=== PATIENT | male | born 1985 | race Caucasian/White ===

== ENCOUNTER 2018-12-22 03:45 | Inpatient (IN) | payer SELFPAY ==
[~2018-12-22] VITALS: Ht 182.9 cm; Wt 113.0 kg
[2018-12-22] MEDS ORDERED: LORazepam 2MG/ML-1ML VIAL IV ONE ×2 (04:30→07:45)
[2018-12-22] MEDS ORDERED: SODIUM CHLORIDE 0.9% 1,000 ML IV ONE ×2 (04:30→09:30)
[2018-12-22] MEDS ORDERED: ACETAMINOPHEN 325 MG TAB PO ONE (04:30)
[2018-12-22 06:27] LABS: Urine Bacteria NONE SEEN /hpf (None Seen); Urine Blood 2+ /uL (Negative); Urine Hyaline Cast MANY /lpf (0 - 2); Urine Mucus FEW (None Seen); Urine Specific Gravity 1.015 (1.001-1.035); Urine Sperm PRESENT /hpf (None Seen); Urine WBC 7 /hpf (0 - 3)
[2018-12-22 06:55] LABS: Amphetamine Screen, Urine POSITIVE (NEGATIVE); Barbiturate Scree,Urine NEGATIVE (NEGATIVE); Benzodiazephine Screen, Urine NEGATIVE (NEGATIVE); Cannabinoid Screen, Urine POSITIVE (NEGATIVE); Cocaine Screen, Urine NEGATIVE (NEGATIVE); Opiate Scree,Urine NEGATIVE (NEGATIVE); Phencyclidine Screen, Urine NEGATIVE (NEGATIVE)
[2018-12-22 07:18] LABS: Basophils # (auto) 0.2 uL; Basophils % (auto) 0.7 % (0.0-2.0); Eosinophils # (auto) 0 uL; Hematocrit 46.6 % (41.0-53.0); Hemoglobin 16.2 g/dL (13.5-17.5); Lymphocytes # (auto) 1.2 uL; Lymphocytes % (auto) 5.2 % (10.0-50.0); Mean Corpuscular Hemoglobin 30.2 pg (28.0-32.0); Mean Corpuscular Hgb Conc. 34.7 g/dL (32.0-36.0); Monocytes # (auto) 1.4 uL; Monocytes % (auto) 6.1 % (0.0-12.0); Neutrophils # (auto) 20.5 uL; Platelet Count (auto) 293 10^3/uL (140-450); Red Blood Cells 5.35 10^6/uL (4.5-5.90); Red Cell Distribution Width 13.8 % (11.8-14.3); White Blood Cell 23.3 10^3/uL (4.4-10.8)
[2018-12-22 07:25] LABS: Albumin 4.2 g/dL (3.4-5.0); Anion Gap 12 (5-15); Blood Urea Nitrogen 19 mg/dL (7-18); Calcium 8.3 mg/dL (8.5-10.1); Carbon Dioxide 20 mmol/L (21-32); Chloride 108 mmol/L (98-107); Glucose 114 mg/dL (74-106); Potassium 3.2 mmol/L (3.5-5.1); Sodium 140 mmol/L (136-145)
[2018-12-22 07:27] LABS: Acetaminophen < 2.0 ug/mL (10-30); Alanine Aminotransferase 68 U/L (16-61); Aspartate Aminotransferase 93 U/L (15-37); Blood Alcohol < 3.0 mg/dL (0-5); GFR African American 72 mL/min; GFR Non-African American 60 mL/min; Salicylate < 1.7 mg/dL (2.8-20.0)
[2018-12-22 07:30] LABS: Alkaline Phosphatase 68 U/L (45-117); Bilirubin, Total 1.3 mg/dL (0.2-1.0); Total Protein 8.4 g/dL (6.4-8.2)
[2018-12-22] MEDS ORDERED: IBUPROFEN 800 MG TAB PO ONE (07:45)
[2018-12-22] MEDS ORDERED: ACETAMINOPHEN 500 MG TAB PO PRN (09:30)
[2018-12-22] MEDS ORDERED: cefTRIAXone 1GM/50ML D5W 50 ML IV ONE (09:30)
[2018-12-22] MEDS ORDERED: HYDROcodone-ACET 5/325MG TAB PO PRN (09:30)
[2018-12-22] MEDS ORDERED: LORazepam 2MG/ML-1ML VIAL IV PRN (09:30)
[2018-12-22] MEDS ORDERED: MORPHINE SULF INJ 2 MG/ML SYRINGE 1ML IV PRN ×2 (09:30)
[2018-12-22] MEDS ORDERED: AZITHROMYCIN 500MG/ 250ML 250 ML IV ONE (09:30)
[2018-12-22] MEDS ORDERED: SOD CHL 0.9%/ KCL 20MEQ 1,000 ML IV SCH (09:30)
[2018-12-22] MEDS ORDERED: ONDANSETRON HCL 4 MG/2 ML VIAL IV PRN (09:30)
[2018-12-22] MEDS ORDERED: NITROGLYCERIN 0.4 MG SL TAB SL PRN (09:30)
[2018-12-22] MEDS ORDERED: FAMOTIDINE 20 MG TAB PO SCH (10:00)
[2018-12-22] MEDS ORDERED: HALOPERIDOL LACTATE 5 MG/ML INJ VIAL IM ONE (10:00)
--- NOTE | 2018-12-22 10:35 | NUR ---
Telemetry admit from ER SHANNON MCKEON admitted to Telemetry unit after SBAR received. Patient oriented to PASTORA ESPARZA, primary RN, unit, room, bed, and unit policies regarding patient care and visiting hours. Patient now on continuous telemetry monitoring, tele box # [45] and telemetry reading on arrival to unit is [normal sinus rhythm at 90 bpm]. Patient weighed by bedscale and encouraged to call if they need something. Patient is confused and unable to answer questions. Patient responds to shaking.
[2018-12-22 13:00] VITALS: BP 112/59
--- NOTE | 2018-12-22 13:35 | NUR ---
Spoke with Poison control. Sri pharmacist from [facility] recommended repeat CMP, AST, ALT, and creatine kinase now. Phone number for [facility] is . Jameson JAFFE paged.
--- NOTE | 2018-12-22 14:43 | NUR ---
Spoke with Daya ROMERO RN, on discharge the [facility]'s department does not need to be notified. Per RN, patient received a citation and is to appear in court on the date on citation.
[2018-12-22 15:00] LABS: Albumin 3.4 g/dL (3.4-5.0); Calcium 7.8 mg/dL (8.5-10.1); Potassium 3.3 mmol/L (3.5-5.1)
[2018-12-22 15:15] LABS: BUN/Creatinine Ratio 18.3; Bilirubin, Total 1.1 mg/dL (0.2-1.0)
[2018-12-22 17:00] VITALS: BP 114/81
--- NOTE | 2018-12-22 17:25 | NUR ---
Patient awake. Patient is alert and oriented to person, place, time, situation. Patient stated "the last few times I took ectasy, I did it because I was lonely. " Patient denies suicide/homicidal ideation or attempt. Juan Barba NP aware. Tele-psych ordered to be completed tomorrow morning.
--- NOTE | 2018-12-22 18:00 | NUR ---
Rex JAFFE at bedside.
--- NOTE | 2018-12-22 19:20 | NUR ---
Change of shift given to assembler 1st shift RN. No distress noted.
--- NOTE | 2018-12-22 20:40 | NUR ---
PATIENT LEFT WITHOUT TELLING THE NURSE,CHARGE NURSE AWARE AND SECURITY.
--- NOTE | 2018-12-22 21:05 | NUR ---
Rocky Nava informed about the patient eloped.
--- NOTE | 2018-12-22 22:22 | NUR ---
Informed Nursing art therapy certified supervisor and hospitalist for patient elopement.
--- NOTE | 2018-12-22 22:27 | NUR ---
Odalys Santizo person to notify informed that the patient eloped.
[2018-12-23] MEDS ORDERED: LEVOFLOXACIN 750MG 150 ML IV SCH (10:00)
== END 2018-12-22 21:18 | disposition left against medical advice (07) | DRG 871 ==
LOC: ER 03:52 → TELE 03:53 → TELE-CENTR 11:06
PROVIDERS: ADMIT Nurse Practitioner Acute Care; ATTEND Nurse Practitioner Acute Care
DX: A41.9 Sepsis, unspecified organism (principal); J18.1 Lobar pneumonia, unspecified organism; N39.0 Urinary tract infection, site not specified; T50.901A Poisoning by unspecified drugs, medicaments and biological substances, accidental (unintentional), initial encounter; E66.9 Obesity, unspecified; E87.6 Hypokalemia; F12.90 Cannabis use, unspecified, uncomplicated; Y92.89 Other specified places as the place of occurrence of the external cause; Z68.33 Body mass index [BMI] 33.0-33.9, adult
CPT/HCPCS: 36415; 71045; 80053; 80307; 80320; 80329; 81001; 82550; 83605; 85025; 87040; 93005; 96374; 96376; G0378; J0696